=== PATIENT | male | born 1980 | race African-American/Black ===

== ENCOUNTER 2019-03-10 10:33 | Emergency (ER) | payer OTHER ==
[~2019-03-10] VITALS: Ht 177.8 cm; Wt 111.1 kg
[2019-03-10 11:26] LABS: ABSOLUTE NEUTROPHILS 4.5 thou/uL (1.4-8.2); BASOPHILS 0.8 % (0.0-2.0); EOSINOPHILS 3.3 % (0.0-3.0); HEMATOCRIT 44.7 % (42.0-52.0); HEMOGLOBIN 14.7 gm/dL (14.0-18.0); LYMPHOCYTES 24.2 % (24.0-44.0); MCH 28.1 pg (26.0-34.0); MCHC 32.9 g/dL (28.0-37.0); MCV 85.4 fL (80.0-100.0); MONOCYTES 7.8 % (1.0-8.0); POLYS 63.9 % (36.0-66.0); RBC 5.23 mil/uL (4.50-6.00); RDW 15.5 % (10.5-14.5)
[2019-03-10 11:28] LABS: ANION GAP 8 mmol/L (7-16); BUN 11 mg/dL (7-18); CALCIUM 9.9 mg/dL (8.5-10.1); CHLORIDE 101 mmol/L (98-107); CO2 27 mmol/L (21-32); CREATININE 1.1 mg/dL (0.7-1.3); GLUCOSE 294 mg/dL (74-106); POTASSIUM 4.3 mmol/L (3.5-5.1); SODIUM 136 mmol/L (136-145)
[2019-03-10 11:28] LABS: URINE BILIRUBIN NEGATIVE (Negative); URINE BLOOD NEGATIVE (Negative); URINE CLARITY CLEAR; URINE COLOR YELLOW; URINE GLUCOSE-RANDOM* 3+ (Negative); URINE KETONES NEGATIVE (Negative); URINE LEUKOCYTES-REFLEX NEGATIVE (Negative); URINE NITRITE-REFLEX NEGATIVE (Negative); URINE PROTEIN (DIPSTICK) NEGATIVE (Negative); URINE UROBILINOGEN 0.2 E.U./dl (0.2-1.0)
[2019-03-10 11:38] LABS: ALBUMIN 3.5 g/dL (3.4-5.0); SGOT 21 U/L (15-37); SGPT 32 U/L (30-65); TOTAL BILIRUBIN 0.2 mg/dL (<0.1-1.0); TOTAL PROTEIN 7.4 g/dL (6.4-8.2); TROPONIN-I <0.06 ng/mL (<0.06)
[2019-03-10 12:23] LABS: LARGE PLATELETS FEW; PLATELET COUNT 219 thou/uL (150-400); PLATELET ESTIMATE NORMAL
[2019-03-10 12:36] VITALS: BP 155/100
[2019-03-10] MEDS ORDERED: CYCLOBENZAPRINE5 MG PO (12:43)
[2019-03-11 01:10] LABS: GLYCOHEMOGLOBIN (HGB A1C) 10.4 % (4.8-5.6)
--- NOTE | 2019-03-11 08:42 | EKG ---
[place] [address] [address] [facility] [address] ELECTROCARDIOGRAM REPORT Name: ISA ORLANDO Room #: DEP Linda#: [id number] ������������������ Admission: 03/10/19 ������������������ Attend Phys: Discharge: 03/10/19 ������������������ Date of : 84 Report #: [id number] ����������������������������������������������������������������� [id number] THIS REPORT FOR: //name// [facility] ED Test Date: 2019-03-10 Test Time: 11:03:24 Pat Name: ISA ORLANDO Department: Room: Gender: Prepress Specialist: ISAI : 1980 Requested By: Raj Garcia Order Number: [id number] MD: Galindo Ham Measurements Intervals [place] Rate: 93 P: 62 NE: 134 QRS: 4 QRSD: 91 T: 47 QT: 346 QTc: 431 Interpretive Statements Sinus rhythm Abnormal R-wave progression, early transition No previous ECG available for comparison Electronically Signed On 03-11-2019 8:42:30 CDT by Galindo Ham [email or web address] ��������������������������������������������� <ELECTRONICALLY SIGNED> ���������������������������������������� By: Galindo Ham MD ��������������������������������������������� 03/11/19 [id number] MD JOAQUINA Diaz
== END 2019-03-10 12:50 | disposition home or self-care (01) ==
LOC: ER 10:33
PROVIDERS: Physician Assistant
DX: R07.9 Chest pain, unspecified (principal); R42 Dizziness and giddiness; G89.29 Other chronic pain; I49.8 Other specified cardiac arrhythmias; R73.9 Hyperglycemia, unspecified; F17.210 Nicotine dependence, cigarettes, uncomplicated